=== PATIENT | male | born 1950 | race Caucasian/White ===

== ENCOUNTER 2018-08-28 12:06 | Emergency (ER) | payer MEDICARE ==
[~2018-08-28] VITALS: Ht 172.7 cm; Wt 86.2 kg
[2018-08-28] MEDS ORDERED: LIDOCAINE HCL 1% 20 ML VIAL TP ONE (12:30)
[2018-08-28] MEDS ORDERED: TDAP DIPH,PERTUSS,TET VAC/PF 0.5 ML DISP.SYRIN IM ONE ×2 (12:30→13:39)
[2018-08-28 13:52] VITALS: BP 133/76
== END 2018-08-28 13:52 | disposition home or self-care (01) ==
LOC: ER 12:06
DX: S61.220A Laceration with foreign body of right index finger without damage to nail, initial encounter (principal); E78.5 Hyperlipidemia, unspecified; W26.8XXA Contact with other sharp object(s), not elsewhere classified, initial encounter; Y93.89 Activity, other specified; Y92.89 Other specified places as the place of occurrence of the external cause; Y99.8 Other external cause status
CPT/HCPCS: 12041; 73140; 90471; 90715; 99284; J3490; A4217; A4663

== ENCOUNTER 2018-09-04 13:14 | Emergency (ER) | payer MEDICARE ==
[~2018-09-04] VITALS: Ht 175.3 cm; Wt 86.2 kg
--- NOTE | 2018-09-04 14:33 | NUR ---
Patient discharged to home in stable conditon. Written and verbal after care instructions given to patient. Patient verbalizes understanding of instructions.
== END 2018-09-04 14:36 | disposition other institution (70) ==
LOC: ER 13:14
DX: S61.220D Laceration with foreign body of right index finger without damage to nail, subsequent encounter (principal); L08.9 Local infection of the skin and subcutaneous tissue, unspecified; E78.5 Hyperlipidemia, unspecified; X58.XXXD Exposure to other specified factors, subsequent encounter
CPT/HCPCS: 73140; A4663

== ENCOUNTER 2022-12-19 14:00 | Emergency (ER) | payer MEDICARE ==
[~2022-12-19] VITALS: Ht 172.7 cm; Wt 86.2 kg
[2022-12-19] MEDS ORDERED: LIDOCAINE HCL 1% 20 ML VIAL ONE (14:34)
[2022-12-19] MEDS ORDERED: LIDOCAINE HCL 1% 20 ML VIAL IJ ONE (14:45)
[2022-12-19] MEDS ORDERED: HYDR-3980 PO (15:11)
[2022-12-19 15:22] VITALS: BP 136/74; TEMP 98; O2SAT 98
== END 2022-12-19 15:23 | disposition home or self-care (01) ==
LOC: ER 14:00
DX: S61.212A Laceration without foreign body of right middle finger without damage to nail, initial encounter (principal); E78.5 Hyperlipidemia, unspecified; Z79.899 Other long term (current) drug therapy; W27.0XXA Contact with workbench tool, initial encounter; Y93.89 Activity, other specified; Y92.89 Other specified places as the place of occurrence of the external cause; Y99.8 Other external cause status
CPT/HCPCS: 12002; 99283; J3490; A4663

== ENCOUNTER 2022-12-31 11:58 | Emergency (ER) | payer MEDICARE ==
[~2022-12-31] VITALS: Ht 172.7 cm; Wt 86.2 kg
[~2022-12-31 11:58] MED LIST: HYDR-3980 PO
[2022-12-31 12:03] VITALS: O2SAT 97
== END 2022-12-31 12:24 | disposition home or self-care (01) ==
LOC: ER 11:58
DX: S61.212D Laceration without foreign body of right middle finger without damage to nail, subsequent encounter (principal); E78.5 Hyperlipidemia, unspecified; Z79.899 Other long term (current) drug therapy; X58.XXXD Exposure to other specified factors, subsequent encounter
CPT/HCPCS: A4606; A4663